=== PATIENT | male | born 1955 | race Caucasian/White ===

== ENCOUNTER 2016-05-15 18:26 | Observation (INO) | payer BC ==
[~2016-05-15] VITALS: Ht 193 cm; Wt 110.0 kg
[2016-05-15 18:30] VITALS: BP 165/86; PULSE 62; RESP 20; TEMP 97.9; O2SAT 97
[2016-05-15] MEDS ORDERED: SODIUM CHLORIDE 0.9% FLUSH 5 ML FLUSH IVF PRN ×2 (19:00→21:00)
[2016-05-15 19:14] VITALS: BP 147/84; PULSE 56; RESP 20; O2SAT 97
--- NOTE | 2016-05-15 19:22 | PD ---
HPI Chief Complaint: Chest Pain Time Seen by Provider: 19:22 Travel History International Travel<30 days: No Contact w/Intl Traveler<30days: No Traveled to known affect area: No History of Present Illness HPI 61-year-old male presents to the emergency department for evaluation of chest pain. The patient states that he was working out at the gym and was feeling easily fatigued. States that he exercises regularly and today was a normal day of exercise and he felt as though he should not feel as fatigued as he felt. States that when he was in the car on the way home from the gym he was driving and had pressure to his left anterior chest with associated lightheadedness and jaw pain. States that this lasted for about 30 minutes. States that his symptoms have completely resolved since then. Denies any recent cough or cold symptoms, fever, chills, nausea, vomiting, abdominal pain. He denies any history of heart disease or cardiac catheterization. States that he had a stress test performed over 5 years ago. He does have a family history of heart disease, his father had a heart attack at age 60. He denies any smoking history. No other complaints. PCP is Dr. Molina. [facility] Past Medical History Diminished Hearing: No Musculoskeletal: Yes (FRACTURES LEFT ARM) Respiratory: Yes (CPAP AT HOME) Integumentary: Yes (psoriasis) Immunizations Current: Yes Tetanus Vaccination: < 5 Years Influenza Vaccination: Yes Past Surgical History Cholecystectomy: Yes Social History Alcohol Use: Yes (SOCIALLY) Tobacco Use: No Substance Use: No Allergies-Medications (Allergen,Severity, Reaction): Coded Allergies: No Known Allergies (Unverified , 11/04/15) Reported Meds & Prescriptions Reported Meds & Active Scripts Active No Active Prescriptions or Reported Medications Review of Systems Except as stated in HPI: all other systems reviewed are Neg Physical Exam Narrative GENERAL: Well-nourished and well-developed pleasant male patient in no acute distress who is nontoxic appearing. SKIN: Warm and dry. HEAD: Normocephalic and atraumatic. EYES: No injection, drainage, or hyphema noted. PERRLA. EOMI. ENT: No nasal drainage noted. Oropharynx is clear. NECK: Supple and the trachea is midline. CARDIOVASCULAR: Regular rate and rhythm. RESPIRATORY: Breath sounds are equal bilaterally with no accessory muscle use, wheezing, rhonchi, or crackles. GASTROINTESTINAL: Abdomen is soft, non-tender, and nondistended. MUSCULOSKELETAL: No obvious deformities, swelling, cyanosis, or ecchymosis is present throughout the upper and lower extremities. Patient has full range of motion without any signs of neurovascular compromise. NEUROLOGICAL: Awake, alert, and oriented. Normal speech and gait. Cranial nerves are grossly intact. Data Data Last Documented VS Vital Signs Date Time Temp Pulse Resp B/P Pulse Ox O2 Delivery O2 Flow Rate FiO2 05/15/16 20:00 56 16 135/72 95 Room Air 05/15/16 18:30 97.9 Orders Electrocardiogram (05/15/16 ) Basic Metabolic Panel (Bmp) (05/15/16 18:56) Ckmb (Isoenzyme) Profile (05/15/16 18:56) Complete Blood Count With Diff (05/15/16 18:56) Magnesium (Mg) (05/15/16 18:56) Prothrombin Time / Inr (Pt) (05/15/16 18:56) Act Partial Throm Time (Ptt) (05/15/16 18:56) Troponin I (05/15/16 18:56) Chest, Single Ap (05/15/16 18:56) Ecg Monitoring (05/15/16 18:56) Bilateral Bp Monitoring (05/15/16 18:56) Iv Access Insert/Monitor (05/15/16 18:56) Oximetry (05/15/16 18:56) Sodium Chloride 0.9% Flush (Ns Flush) (05/15/16 19:00) Aspirin Chew (Aspirin Chew) (05/15/16 19:30) CKMB (05/15/16 19:30) CKMB% (05/15/16 19:30) Admit Order (Ed Use Only) (05/15/16 20:46) Activity Bed Rest With Brp (05/15/16 20:46) Vital Signs (Adult) Q4H (05/15/16 20:46) Cardiac Rhythm .As Directed (05/15/16 20:46) ^ Notify Dr: Other .PRN (05/15/16 20:46) ^ Notify Dr. Parameters (05/15/16 20:46) Resp Oxygen Nasal Cannula (05/15/16 ) Diet Npo (05/16/16 Breakfast) Ckmb (Isoenzyme) Profile (05/15/16 22:30) Ckmb (Isoenzyme) Profile (05/16/16 01:30) Troponin I (05/15/16 22:30) Troponin I (05/16/16 01:30) Electrocardiogram (05/15/16 20:46) Electrocardiogram (05/15/16 23:46) ^ Obtain (05/15/16 20:46) Sodium Chloride 0.9% Flush (Ns Flush) (05/15/16 21:00) Sodium Chloride 0.9% Flush (Ns Flush) (05/15/16 21:00) Acetaminophen (Tylenol) (05/15/16 21:00) Hotel Assistant Manager / Telemetry DELICIA.Q8H (05/15/16 20:46) Labs Laboratory Tests Test 05/15/16 19:30 White Blood Count 7.4 TH/MM3 Red Blood Count 4.50 MIL/MM3 Hemoglobin 13.6 GM/DL Hematocrit 38.1 % Mean Corpuscular Volume 84.7 FL Mean Corpuscular Hemoglobin 30.1 PG Mean Corpuscular Hemoglobin 35.6 % Concent Red Cell Distribution Width 13.5 % Platelet Count 200 TH/MM3 Mean Platelet Volume 8.8 FL Neutrophils (%) (Auto) 66.4 % Lymphocytes (%) (Auto) 22.1 % Monocytes (%) (Auto) 9.6 % Eosinophils (%) (Auto) 1.2 % Basophils (%) (Auto) 0.7 % Neutrophils # (Auto) 4.9 TH/MM3 Lymphocytes # (Auto) 1.6 TH/MM3 Monocytes # (Auto) 0.7 TH/MM3 Eosinophils # (Auto) 0.1 TH/MM3 Basophils # (Auto) 0.1 TH/MM3 CBC Comment DIFF FINAL Differential Comment Prothrombin Time 10.6 SEC Prothromb Time International 1.0 RATIO Ratio Activated Partial 23.8 SEC Thromboplast Time Sodium Level 141 MEQ/L Potassium Level 4.0 MEQ/L Chloride Level 107 MEQ/L Carbon Dioxide Level 26.4 MEQ/L Anion Gap 8 MEQ/L Blood Urea Nitrogen 19 MG/DL Creatinine 1.16 MG/DL Estimat Glomerular Filtration 64 ML/MIN Rate Random Glucose 102 MG/DL Calcium Level 9.0 MG/DL Magnesium Level 2.3 MG/DL Total Creatine Kinase 112 U/L Creatine Kinase MB 0.7 NG/ML Troponin I LESS THAN 0.02 NG/ML MDM Medical Decision Making Medical Screen Exam Complete: Yes Emergency Medical Condition: Yes Differential Diagnosis Angina versus ACS versus pleurisy versus reflux Narrative Course 61-year-old male presents to the emergency department for evaluation of an episode of chest pain with associated lightheadedness, jaw pain and shortness of breath. Patient is afebrile, vital signs are stable. Physical examination is essentially unremarkable. IV access is obtained, labs been drawn and sent. EKG shows sinus bradycardia with a ventricular rate of 55 bpm, no acute ST elevations or depressions. Chest x-ray is negative for any acute abnormalities. CBC is unremarkable. BMP is unremarkable. Troponin is less than 0.02. Coags are unremarkable. Patient has remained stable and without complaint while here in the emergency department. No further episodes of chest pain. I discussed with the patient and given the option for admission chest pain center and the patient elects to stay. He'll be admitted to chest pain center for repeat cardiac enzymes, EKGs and possible stress testing. Diagnosis Primary Impression: Chest pain Qualified Code: R07.9 - Chest pain, unspecified type Admitting Information Admitting Physician Requests: Observation Scripts No Active Prescriptions or Reported Meds Coby De La Fuente May 15, 2016 19:22
--- NOTE | 2016-05-15 19:28 | RADRPT ---
EXAM DATE/TIME: 05/15/2016 19:01 [facility] COMPARISON: No previous studies available for comparison. INDICATIONS : Chest pain. MEDICAL HISTORY : None. SURGICAL HISTORY : None. ENCOUNTER: Initial ACUITY: 1 day PAIN SCORE: 0/10 LOCATION: chest FINDINGS: The lungs are clear without infiltrate, nodule, or mass. There is no appreciable pleural effusion fo r technique. Heart and mediastinum are unremarkable. CONCLUSION: No acute cardiopulmonary disease. Evelina Hui MD on May 15, 2016 at 19:27 Board Certified Radiologist. This report was verified electronically.
[2016-05-15] MEDS ORDERED: ASPIRIN 81 MG CHEW TAB CHEW ONE (19:30)
[2016-05-15 19:54] LABS: AUTOMATED NEUTROPHIL # 4.9 TH/MM3 (1.8-7.7); BASOPHIL # 0.1 TH/MM3 (0-0.2); BASOPHIL % 0.7 % (0.0-2.0); EOSINOPHIL # 0.1 TH/MM3 (0-0.4); EOSINOPHIL % 1.2 % (0.0-4.0); HEMATOCRIT 38.1 % (39.0-51.0); HEMO FLAGS DIFF FINAL; LYMPH % 22.1 % (9.0-44.0); LYMPHOCYTE # 1.6 TH/MM3 (1.0-4.8); MEAN CELL VOLUME 84.7 FL (80.0-100.0); MEAN CORPUSCULAR HEMOGLOBIN 30.1 PG (27.0-34.0); MEAN CORPUSCULAR HGB CONC 35.6 % (32.0-36.0); MONO % 9.6 % (0.0-8.0); NEUT % 66.4 % (16.0-70.0); PLATELET COUNT 200 TH/MM3 (150-450); RED CELL DISTRIBUTION WIDTH 13.5 % (11.6-17.2); WHITE BLOOD COUNT 7.4 TH/MM3 (4.0-11.0)
[2016-05-15 20:00] VITALS: BP 135/72; PULSE 56; RESP 16; O2SAT 95
[2016-05-15 20:05] LABS: APTT (PATIENT) 23.8 SEC (24.3-30.1); PROTHROMBIN TIME - PATIENT 10.6 SEC (9.8-11.6)
[2016-05-15 20:18] LABS: ANION GAP 8 MEQ/L (5-15); BICARBONATE 26.4 MEQ/L (21.0-32.0); BLOOD UREA NITROGEN 19 MG/DL (7-18); CHLORIDE 107 MEQ/L (98-107); GLOMERULAR FILTRATION RATE 64 ML/MIN (>89); MAGNESIUM 2.3 MG/DL (1.5-2.5); SODIUM (NA) 141 MEQ/L (136-145)
[2016-05-15 20:23] LABS: CREATINE KINASE 112 U/L (39-308)
[2016-05-15 20:35] LABS: CKMB 0.7 NG/ML (0.5-3.6)
[2016-05-15 21:00] VITALS: BP 135/65; PULSE 55; RESP 16; O2SAT 95
[2016-05-15] MEDS ORDERED: ACETAMINOPHEN 500 MG CPLT PO PRN (21:00)
[2016-05-15] MEDS: SODIUM CHLORIDE 0.9% FLUSH 5 ML FLUSH IVF SCH (22:02)
[2016-05-15 22:35] VITALS: O2SAT 95
[2016-05-15 23:39] LABS: CREATINE KINASE 106 U/L (39-308)
[2016-05-15 23:51] LABS: CKMB LESS THAN 0.5 NG/ML (0.5-3.6)
[2016-05-15 23:52] VITALS: BP 147/75; PULSE 53; RESP 20; TEMP 97.6; O2SAT 98
[2016-05-16 01:03] VITALS: PULSE 62
[2016-05-16 02:16] LABS: CREATINE KINASE 107 U/L (39-308)
[2016-05-16 02:29] LABS: CKMB LESS THAN 0.5 NG/ML (0.5-3.6)
[2016-05-16 03:26] VITALS: BP 119/57; PULSE 53; RESP 20; TEMP 98.3; O2SAT 97
[2016-05-16 08:00] VITALS: BP 131/93; PULSE 55; RESP 18; TEMP 96.1; O2SAT 96
[2016-05-16] MEDS: SODIUM CHLORIDE 0.9% FLUSH 5 ML FLUSH IVF SCH (09:00)
[2016-05-16 12:00] VITALS: BP 131/82; PULSE 63; RESP 18; TEMP 96.2; O2SAT 96
[2016-05-16] MEDS ORDERED: LISINOPRIL 10 MG TAB PO SCH (12:00)
--- NOTE | 2016-05-16 12:10 | TR ---
Date Performed: 05/16/2016 Time Performed: 10:47:37 DOCTOR: Jeffrey Campos DRUG LIST: CLINICAL HISTORY: REASON FOR TEST: Chest pain REASON FOR ENDING: OBSERVATION: CONCLUSION: KAREN PROTOCOL. NO CP. TEST STOPPED AFTER REACHING GOAL HR SECONDARY TO SOB AND BECO CHARLES HYPERTENSIVE. GOOD EXERCISE TOLERANCE. HYPERTENSIVE RESPONSE TO EXERCISE. RARE PVCs WERE NOTED. ECG TRACINGS WERE NEGATIVE FOR ISCHEMIC CHANGES. RECOVERY WAS QUICK AND UNEVENTFUL WITH RESOLUTION OF SHORTNESS OF BREATH, BLOOD PRESSURE IMPROVED BUT SYSTOLIC BLOOD PRESSURE REMAINED MILDLY ELEVATED. M aximum KA=576 % Max HR Achieved=85.0% Maximum BH=606/84 Total Exercise Time=9:01 COMMENTS: CONCLUSION: Normal exercise treadmill. No evidence of ischemia.
--- NOTE | 2016-05-16 12:18 | EKG ---
Date Performed: 05/15/2016 Time Performed: 22:09:46 PTAGE: 61 years EKG: SINUS BRADYCARDIA MODERATE INTRAVENTRICULAR CONDUCTION DELAY BORDERLINE ECG PREVIOUS TRACING : 05/15/2016 19.05 DOCTOR: Jeffrey Campos Interpretating Date/Time 05/16/2016 12:17:49
--- NOTE | 2016-05-16 12:18 | EKG ---
Date Performed: 05/15/2016 Time Performed: 19:05:04 PTAGE: 61 years EKG: SINUS BRADYCARDIA BORDERLINE ECG PREVIOUS TRACING : 07/22/2001 15.18 DOCTOR: Jeffrey Campos Interpretating Date/Time 05/16/2016 12:16:28
--- NOTE | 2016-05-16 12:24 | EKG ---
Date Performed: 05/16/2016 Time Performed: 01:30:53 PTAGE: 61 years EKG: SINUS BRADYCARDIA LEFT ANTERIOR FASCICULAR BLOCK LEFT AXIS DEVIATION ABNORMAL ECG PREVIOUS TRACING : 05/15/2016 22.09 DOCTOR: Jeffrey Campos Interpretating Date/Time 05/16/2016 12:24:19
--- NOTE | 2016-05-16 12:26 | EKG ---
Date Performed: 05/16/2016 Time Performed: 07:56:27 PTAGE: 61 years EKG: SINUS BRADYCARDIA MODERATE INTRAVENTRICULAR CONDUCTION DELAY BORDERLINE ECG PREVIOUS TRACING : 05/16/2016 01.30 DOCTOR: Jeffrey Campos Interpretating Date/Time 05/16/2016 12:25:54
[2016-05-16] MEDS ORDERED: LISI10TA3 PO (13:32)
--- NOTE | 2016-05-16 13:33 | HHI.DCPOC ---
Discharge Care Plan Diagnosis: (1) Chest pain (2) HTN (hypertension) Goals to Promote Your Health * To prevent worsening of your condition and complications * To maintain your health at the optimal level Directions to Meet Your Goals Take your medications as prescribed Follow your dietary instruction Follow activity as directed Keep your appointments as scheduled Take your immunizations and boosters as scheduled If your symptoms worsen call your PCP, if no PCP go to Urgent Care Center or Emergency Room Smoking is Dangerous to Your Health. Avoid second hand smoke Call the 24-hour hour crisis hotline for domestic abuse at Zeus Laboy May 16, 2016 13:33
--- NOTE | 2016-05-18 12:16 | MH ---
cc: GENEVA CLARK Corrected Copy: 05/21/16 DATE OF ADMISSION: 05/15/2016 DATE OF : 1955 CHIEF COMPLAINT Chest pain HISTORY OF PRESENT ILLNESS This is a 61-year-old male who presents to the emergency department via private vehicle complaining of left lower chest discomfort. He states it occurred after doing a workout. He works out 6 days a week. He had been lifting some mild weight and went to the rowing machine and after about 5 minutes started feeling fatigued, which he states he usually can do it for 30 minutes. He had no discomforts. However, a little while later while driving home he developed the discomfort to the left-side of his chest. He describes it as a pressure with a numbness type sensation radiating up into both sides the jaw and to the ears. He was also short of breath. He felt a little light headed. No nausea or diaphoresis. Symptoms lasted about an hour 15 minutes. He states he works out six days a week and has never had this issue before. He states he had a stress test about 10 years ago and then did okay with that. Denies recent illnesses. Denies fevers or chills. PAST MEDICAL HISTORY Denies hypertension, hyperlipidemia, diabetes, CAD. FAMILY HISTORY Father had myocardial infarction at 60, he has had bypass. SOCIAL HISTORY: He is a lifetime non is a lifetime nonsmoker has a couple of drinks week on average. He denies illicit drugs. He has been happily 34 years. PAST SURGICAL HISTORY Cholecystectomy ALLERGIES NO KNOWN DRUG ALLERGIES. MEDICATIONS Denies. REVIEW OF SYSTEMS GENERAL: Denies fevers or chills. Denies recent illnesses. HEAD, EYES, EARS, NOSE, AND THROAT: Denies headache or sore throat difficulty swallowing. CARDIOVASCULAR: Describes the discomfort as mentioned above. Denies diaphoresis. Denies sensation of heart beating rapidly or irregularly. Denies syncope. RESPIRATORY: He was short of breath. No inspirational chest discomfort. Denies coughing, wheezing or hemoptysis. GASTROINTESTINAL: Denies nausea, vomiting, diarrhea, blood in stool. MUSCULOSKELETAL: Denies joint pain or edema. Denies calf pain or edema. NEUROVASCULAR: Denies headache or dizziness. Denies poly polydipsia. HEMATOLOGIC: Denies bruising. SKIN: Denies rash or itching. PHYSICAL EXAMINATION VITAL SIGNS: In the emergency initially include blood pressure 165/86, heart was 62, respirations 20, pulse oximetry 97 room air and he was afebrile. Most recent vital signs include blood pressure 131/93. Heart rate 55, respirations 18, pulse oximetry 96 on room air. He was afebrile. IN GENERAL: The patient seen in the examination room in no apparent distress. He is very pleasant. Speaks in clear and complete sentences. HEAD, EYES, EARS, NOSE, AND THROAT: Head is atraumatic, normocephalic. NECK: Neck is supple without lymphadenopathy. Trachea no JVD or carotid bruits. CARDIOVASCULAR SYSTEM: Regular rate and rhythm without gallop or rub. There is grade 2 systolic murmur sternal border. RESPIRATORY: Lungs are clear to auscultation bilaterally. No wheezing, rales or rhonchi. No reproducible chest wall discomfort. No use of muscles. GASTROINTESTINAL: Abdomen is nontender, nondistended. Bowel sounds are normal. No guarding or rebound. No obvious pulsatile mass or bruit. No CVA tenderness. Strong femoral pulses bilaterally. MUSCULOSKELETAL: The patient is moving upper and lower extremities freely. No joint tenderness or edema. No calf tennis edema, Homans' sign. Strong pulses in upper and lower extremities. NEUROVASCULAR: The patient is alert and oriented. Cranial nerves II XII grossly intact and focal deficit and speech is clear. SKIN: No rash and turgor is normal. LABORATORY DATA CBC is unremarkable. Coagulation studies are unremarkable. Basic metabolic panel is essentially unremarkable, GFR being decreased 64. Serial cardiac enzymes normal x3. RADIOLOGIC: Single view chest x-ray read by radiologist as no acute cardiopulmonary disease. EKG's have sinus bradycardia, lowest rate being at 47. No significant ST-segment depression elevation. There is nonspecific T-wave change. ASSESSMENT 1. Chest pain: The patient has had serial cardiac enzymes and EKG's for out purposes. He will be seen by Dr. Clark in the chest pain center. He will likely undergo Ian protocol ETT and if that would be nonischemic, he will likely be discharged home with instructions to follow up with local physician. 2. The patient stable at this time. He is agreeable to this plan. DICTATED BY: Zeus Laboy PA-C MD CHRISTINA [place]/nohelia /10:35 AM /2:52 PM
== END 2016-05-16 15:45 | disposition home or self-care (01) ==
LOC: NEPC 18:26 → NEDA 20:51 → NEPFCDU 23:46
PROVIDERS: ADMIT Internal Medicine Cardiovascular Disease; ATTEND Internal Medicine Cardiovascular Disease
DX: R07.89 Other chest pain (principal); R94.31 Abnormal electrocardiogram [ECG] [EKG]; Z82.49 Family history of ischemic heart disease and other diseases of the circulatory system
CPT/HCPCS: 71010; 80048; 82550; 82552; 83735; 84484; 85025; 85610; 85730; 93005; 93017; 99285; G0378